=== PATIENT | female | born 1965 | race Caucasian/White ===

== ENCOUNTER 2016-07-14 16:42 | Emergency (ER) | payer MEDICAID, OTHER ==
[~2016-07-14] VITALS: Ht 167.6 cm; Wt 80.0 kg
[~2016-07-14 16:42] MED LIST: CHLO5CAP3 PO; DEPA500T3 PO; GABA100C4 PO; HALO0.5T PO; LORA-474 PO; SERT50 PO
[2016-07-14 16:53] VITALS: BP 118/77; PULSE 94; RESP 18; TEMP 98.1; O2SAT 99
[2016-07-14] MEDS ORDERED: OLANZapine 10 MG TAB PO ONE ×2 (17:30→22:30)
[2016-07-14 17:46] LABS: AUTOMATED NEUTROPHIL # 1.7 TH/MM3 (1.8-7.7); BASOPHIL % 0.6 % (0.0-2.0); EOSINOPHIL # 0.1 TH/MM3 (0-0.4); EOSINOPHIL % 1.3 % (0.0-4.0); HEMATOCRIT 41.7 % (35.0-46.0); LYMPH % 63.1 % (9.0-44.0); LYMPHOCYTE # 3.5 TH/MM3 (1.0-4.8); MEAN CELL VOLUME 97.1 FL (80.0-100.0); MEAN CORPUSCULAR HEMOGLOBIN 32.2 PG (27.0-34.0); MEAN CORPUSCULAR HGB CONC 33.1 % (32.0-36.0); MONO % 4.4 % (0.0-8.0); NEUT % 30.6 % (16.0-70.0); PLATELET COUNT 273 TH/MM3 (150-450); RED BLOOD COUNT 4.29 MIL/MM3 (4.00-5.30); RED CELL DISTRIBUTION WIDTH 16.2 % (11.6-17.2); WHITE BLOOD COUNT 5.5 TH/MM3 (4.0-11.0)
--- NOTE | 2016-07-14 17:49 | PD ---
HPI Chief Complaint: Psychiatric Symptoms Time Seen by Provider: 17:13 Travel History International Travel<30 days: No Contact w/Intl Traveler<30days: No Traveled to known affect area: No History of Present Illness HPI Patient is a 51-year-old female presents emergency department for evaluation of Rhoades act. Patient does admit to alcohol ingestion tonight and states that she is having voices in her head talking to her and she's not been taking her Zyprexa. Patient is reluctant to admit that she had a knife and was threatening to stab herself in the abdomen with a Rhoades act states. When asked directly about this she states that she did have a knife and was thinking about stabbing herself in the abdomen but did not actually do so. Patient states that she needs her Zyprexa and is hungry. Otherwise she has no complaints. Denies any chest pain shortness breath abdominal pain nausea vomiting diarrhea. PFSH Past Medical History Asthma: Yes Bipolar Disorder: Yes Anxiety: Yes Cancer: Yes (SKIN) COPD: Yes Diminished Hearing: No Respiratory: Yes (COPD) Schizophrenia: Yes Ovarian Cysts: Yes Past Surgical History Section: Yes Ear Surgery: Yes Hysterectomy: Yes Tonsillectomy: Yes Other Surgery: Yes (BENIGN TUMORS REMOVED BREAST & BACK) Social History Alcohol Use: Yes (7 BEERS PER DAY, NONE X 3 DAYS.) Tobacco Use: Yes (2 PPD) Substance Use: No (PT DENIES) Allergies-Medications (Allergen,Severity, Reaction): Coded Allergies: Amoxicillin (Verified Allergy, Severe, Seizures, 02/25/16) PT STATES SHE HAD A SEIZURE WHEN SHE TOOK AMOXICILLIN Tramadol (Verified Allergy, Severe, Seizures, 02/25/16) PT STATES SHE HAD A SEIZURE WHEN SHE HAD TRAMADOL Reported Meds & Prescriptions Reported Meds & Active Scripts Active Reported Ativan (Lorazepam) 1 Mg Tab 1 Mg PO BID Gabapentin 100 Mg Cap 100 Mg PO BID Librium (Chlordiazepoxide) 5 Mg Cap 60 Mg PO DAILY Haldol (Haloperidol) 0.5 Mg Tab 0.5 Mg PO BID Zoloft (Sertraline HCl) 50 Mg Tab 50 Mg PO DAILY Depakote (Divalproex Sodium) 500 Mg Pattie 750 Mg PO HS Review of Systems Except as stated in HPI: all other systems reviewed are Neg Physical Exam Narrative GENERAL: Well-developed well-nourished smells of alcohol but in no apparent distress. She is stating that she is hungry and requests food multiple times while in the emergency department. SKIN: Warm and dry. Complete head to toe skin examination shows no wound of her person. HEAD: Atraumatic. Normocephalic. EYES: Pupils equal and round. No scleral icterus. No injection or drainage. ENT: No nasal bleeding or discharge. Mucous membranes pink and moist. NECK: Trachea midline. No JVD. CARDIOVASCULAR: Regular rate and rhythm. No murmur appreciated. RESPIRATORY: No accessory muscle use. Clear to auscultation. Breath sounds equal bilaterally. GASTROINTESTINAL: Abdomen soft, non-tender, nondistended. Hepatic and splenic margins not palpable. MUSCULOSKELETAL: No obvious deformities. No clubbing. No cyanosis. No edema. NEUROLOGICAL: Awake and alert and oriented. Cranial nerves II through XII are grossly intact nonfocal, 5 over 5 strength in all 4 extremities. Patient exhibits no tremors, cerebellar intact. She is ambulatory in the emergency department without any difficulty. PSYCHIATRIC: Appropriate mood and affect; insight and judgment normal. Data Data Last Documented VS Vital Signs Date Time Temp Pulse Resp B/P Pulse Ox O2 Delivery O2 Flow Rate FiO2 07/14/16 16:53 98.1 94 18 118/77 99 Orders Complete Blood Count With Diff (07/14/16 16:52) Comprehensive Metabolic Panel (07/14/16 16:52) Drug Screen, Random Urine (07/14/16 16:52) Alcohol (Ethanol) (07/14/16 16:52) Salicylates (Aspirin) (07/14/16 16:52) Tylenol (Acetaminophen) (07/14/16 16:52) Psych Screen (07/14/16 16:52) Olanzapine (Zyprexa) (07/14/16 17:30) Diet Regular Basic (07/14/16 Dinner) Labs Laboratory Tests Test 07/14/16 17:13 White Blood Count 5.5 TH/MM3 Red Blood Count 4.29 MIL/MM3 Hemoglobin 13.8 GM/DL Hematocrit 41.7 % Mean Corpuscular Volume 97.1 FL Mean Corpuscular Hemoglobin 32.2 PG Mean Corpuscular Hemoglobin 33.1 % Concent Red Cell Distribution Width 16.2 % Platelet Count 273 TH/MM3 Mean Platelet Volume 7.6 FL Neutrophils (%) (Auto) 30.6 % Lymphocytes (%) (Auto) 63.1 % Monocytes (%) (Auto) 4.4 % Eosinophils (%) (Auto) 1.3 % Basophils (%) (Auto) 0.6 % Neutrophils # (Auto) 1.7 TH/MM3 Lymphocytes # (Auto) 3.5 TH/MM3 Monocytes # (Auto) 0.2 TH/MM3 Eosinophils # (Auto) 0.1 TH/MM3 Basophils # (Auto) 0.0 TH/MM3 CBC Comment AUTO DIFF Sodium Level 144 MEQ/L Potassium Level 4.3 MEQ/L Chloride Level 110 MEQ/L Carbon Dioxide Level 28.3 MEQ/L Anion Gap 6 MEQ/L Blood Urea Nitrogen 14 MG/DL Creatinine 0.58 MG/DL Estimat Glomerular Filtration 110 ML/MIN Rate Random Glucose 81 MG/DL Calcium Level 8.1 MG/DL Total Bilirubin 0.2 MG/DL Aspartate Amino Transf 45 U/L (AST/SGOT) Alanine Aminotransferase 54 U/L (ALT/SGPT) Alkaline Phosphatase 120 U/L Total Protein 7.4 GM/DL Albumin 3.7 GM/DL Salicylates Level 6.1 MG/DL Acetaminophen Level LESS THAN 2.0 MCG/ML Ethyl Alcohol Level 265 MG/DL MDM Medical Decision Making Medical Screen Exam Complete: Yes Emergency Medical Condition: Yes Differential Diagnosis Alcohol intoxication, psychosis, suicide attempt. Narrative Course Patient's 51-year-old female presents on Rhoades act, she is intoxicated but is ambulatory without difficulty. She has no wounds on her chest abdomen pelvis buttocks extremities or neck.. Laboratory values are reviewed and minimal elevations of AST and LT. Bilirubin normal. Plate looks normal. Patient is medically stable for psychiatric disposition at this time. Can be moved to [facility] as soon as a bed becomes available. Diagnosis Primary Impression: Suicide attempt Additional Impression: Alcohol intoxication Condition: Stable Reyes Horvath MD Jul 14, 2016 17:49
[2016-07-14 18:03] LABS: ANION GAP 6 MEQ/L (5-15); AST (GOT) 45 U/L (15-37); BICARBONATE 28.3 MEQ/L (21.0-32.0); BLOOD UREA NITROGEN 14 MG/DL (7-18); CHLORIDE 110 MEQ/L (98-107); GLOMERULAR FILTRATION RATE 110 ML/MIN (>89); POTASSIUM 4.3 MEQ/L (3.5-5.1); SODIUM (NA) 144 MEQ/L (136-145)
[2016-07-14 18:06] LABS: ALKALINE PHOSPHATASE 120 U/L (45-117); ALT (GPT) 54 U/L (10-53); TOTAL BILIRUBIN ADULT 0.2 MG/DL (0.2-1.0)
[2016-07-14 18:09] LABS: ACETAMINOPHEN LESS THAN 2.0 MCG/ML (10.0-30.0)
[2016-07-14 18:11] LABS: HEMO FLAGS AUTO DIFF
[2016-07-14 18:37] LABS: BASOPHILS 1 % (0-2); EOSINOPHILS 3 % (0-4); NEUTROPHIL # MANUAL DIFF 1.5 TH/MM3 (1.8-7.7); POLYS (SEG NEUTROPHILS) 27 % (16-70); WBC DIFF SAMPLE 100
[2016-07-14 18:39] LABS: OVALOCYTES 1+ (NORMAL); PLATELET ESTIMATE SMEAR NORMAL (NORMAL); PLATELET MORPHOLOGY NORMAL (NORMAL); SCAN/DIFF FINAL DIFF MANUAL; SPHEROCYTES 1+ (NORMAL)
[2016-07-14 18:51] VITALS: BP 113/90; PULSE 82; RESP 18; TEMP 98.6; O2SAT 98
[2016-07-14 21:12] LABS: AMPHETAMINE, URINE NEG (NEG); BARBITURATES, URINE NEG (NEG); COCAINE, URINE NEG (NEG)
[2016-07-14 22:06] VITALS: BP 120/69; PULSE 97; RESP 18; O2SAT 96
[2016-07-14] MEDS ORDERED: diphenhydrAMINE HCL 50 MG CAP PO ONE (22:30)
[2016-07-15 02:00] VITALS: BP 131/79; PULSE 84; RESP 18; O2SAT 95
[2016-07-15 06:29] VITALS: BP 132/84; PULSE 71; RESP 18; O2SAT 98
[2016-07-15] MEDS ORDERED: GABA400C5 PO (07:20)
[2016-07-15] MEDS ORDERED: EFFE150C PO (07:20)
[2016-07-15] MEDS ORDERED: ZYPR10TA PO (07:20)
== END 2016-07-15 11:09 ==
LOC: NEDAMB 16:42 → NEPJ 07-15 11:09
DX: F10.220 Alcohol dependence with intoxication, uncomplicated (principal); R45.851 Suicidal ideations; J45.909 Unspecified asthma, uncomplicated; F31.9 Bipolar disorder, unspecified; F41.9 Anxiety disorder, unspecified; J44.9 Chronic obstructive pulmonary disease, unspecified; F20.9 Schizophrenia, unspecified; Y90.8 Blood alcohol level of 240 mg/100 ml or more; F17.210 Nicotine dependence, cigarettes, uncomplicated
CPT/HCPCS: 80053; 80307; 80320; 85007; 85027; 99285; Q0163; 80329; G0480